=== PATIENT | female | born 1940 | race Caucasian/White ===

== ENCOUNTER 2022-08-23 15:09 | Inpatient (IN) ==
[2022-08-23] MEDS ORDERED: ONDANSETRON 4 MG/2 ML VIAL IV STA (15:45)
[2022-08-23] MEDS: HYDROmorphone 1 MG/1 ML SYRINGE IV PRN (16:04)
[2022-08-23 16:14] LABS: Basophils % 0.4 % (0.0-0.8); Eosinophils # 0.1 10*3/uL (0.0-0.87); Eosinophils % 0.6 % (0.00-10.9); Hematocrit 39.5 VOL% (35.7-47.0); Hemoglobin 13.6 GM/DL (12.0-16.0); Immature Granulocytes % 0.8 %; Immature Granulocytes Absolute 0.09 #; Lymphocytes # 0.7 10*3/uL (1.4-4.0); Lymphocytes % 6.4 % (21.3-54.2); Mean Corpuscular HGB Conc 34.4 GM/DL (32-36); Mean Corpuscular Volume 87.8 FL (87-102); Mean Platelet Volume 10.1 FL (9.6-12.0); Monocytes # 0.5 10*3/uL (0.11-0.8); Monocytes % 4.9 % (1.7-12.7); Neutrophils % 86.9 % (38.7-73.9); Platelet Count 242 T/CUMM (130-400); Red Cell Distribution Width 11.9 % (9.3-17.3); White Blood Count 11.13 T/CUMM (4-12)
[2022-08-23 16:59] LABS: Albumin 4.3 G/DL (3.4-5.0); Bilirubin,Total 0.6 MG/DL (0.20-1.00); Calcium 8.9 MG/DL (8.5-10.1); Osmolality,Calculated 282.4 MOS/KG (273-304); Potassium 3.7 MMOL/L (3.5-5.1); Total Protein 7.3 G/DL (6.4-8.2)
[2022-08-23] MEDS ORDERED: MORPHINE 2 MG/1 ML SYRINGE IV PRN ×2 (17:19)
[2022-08-23] MEDS ORDERED: ONDANSETRON 4 MG/2 ML VIAL IV PRN (19:42)
[2022-08-23] MEDS ORDERED: hydrALAZINE 20 MG/1 ML VIAL IV PRN (19:42)
[2022-08-23] MEDS: LACTATED RINGERS 1,000 ML IV SCH (22:34)
[2022-08-24 05:06] LABS: Basophils % 0.5 % (0.0-0.8); Eosinophils % 0.5 % (0.00-10.9); Hematocrit 39.5 VOL% (35.7-47.0); Hemoglobin 13.4 GM/DL (12.0-16.0); Immature Granulocytes % 0.3 %; Immature Granulocytes Absolute 0.03 #; Lymphocytes # 0.5 10*3/uL (1.4-4.0); Lymphocytes % 6.3 % (21.3-54.2); Mean Corpuscular HGB Conc 33.9 GM/DL (32-36); Mean Corpuscular Volume 88.8 FL (87-102); Mean Platelet Volume 10.6 FL (9.6-12.0); Monocytes # 0.7 10*3/uL (0.11-0.8); Monocytes % 8.4 % (1.7-12.7); Platelet Count 216 T/CUMM (130-400); Red Blood Count 4.45 MC/CUMM (3.8-5.5); White Blood Count 8.61 T/CUMM (4-12)
[2022-08-24 05:27] LABS: Calcium 9.2 MG/DL (8.5-10.1); Osmolality,Calculated 281.4 MOS/KG (273-304); Potassium 3.6 MMOL/L (3.5-5.1)
[2022-08-24] MEDS ORDERED: VANCOMYCIN INJ 750 MG in SODIUM CHLORIDE 0.9% 250 ML IV ONE (06:00)
[2022-08-24] MEDS: PANTOPRAZOLE 40 MG TABLET PO SCH (10:16)
[2022-08-24] MEDS ORDERED: ONDANSETRON 4 MG/2 ML VIAL ONE (10:58)
[2022-08-24] MEDS ORDERED: TRANEXAMIC ACID 1,000 MG/10 ML VIAL ONE (10:58)
[2022-08-24] MEDS ORDERED: MIDAZOLAM 2 MG/2 ML VIAL ONE (10:59)
[2022-08-24] MEDS ORDERED: LIDOCAINE 1% 5 ML VIAL ONE (12:00)
[2022-08-24] MEDS ORDERED: DEXAMETHASONE 4 MG/1 ML VIAL ONE (12:00)
[2022-08-24] MEDS ORDERED: ROPIVACAINE 0.5% 30 ML VIAL ONE (12:00)
[2022-08-24] MEDS ORDERED: KETAMINE 500 MG/10 ML VIAL ONE (12:59)
[2022-08-24] MEDS ORDERED: LACTATED RINGERS 1,000 ML IV SCH (13:00)
[2022-08-24] MEDS ORDERED: buprenorphine HCL 0.3 MG/ML VIAL ONE (13:03)
[2022-08-24] MEDS ORDERED: MAGNESIUM HYDROXIDE SUSP 30 ML UDCUP PO PRN (13:05)
[2022-08-24] MEDS ORDERED: PHENYLEPHRINE 1 MG/10 ML SYRINGE IV ONE (14:09)
[2022-08-24] MEDS: LACTATED RINGERS 1,000 ML IV SCH ×2 (16:52)
[2022-08-24] MEDS: DOCUSATE SODIUM 100 MG CAPSULE PO SCH (21:10)
[2022-08-25] MEDS ORDERED: ceFAZolin 2,000 MG/50 ML DUPLEX IV ONE (04:10)
[2022-08-25] MEDS: HYDROmorphone 1 MG/1 ML SYRINGE IV PRN (04:20)
[2022-08-25] MEDS: LACTATED RINGERS 1,000 ML IV SCH (04:22)
[2022-08-25 05:30] LABS: Basophils % 0.4 % (0.0-0.8); Eosinophils % 0.2 % (0.00-10.9); Hematocrit 34.8 VOL% (35.7-47.0); Immature Granulocytes % 0.6 %; Immature Granulocytes Absolute 0.06 #; Lymphocytes # 0.6 10*3/uL (1.4-4.0); Mean Corpuscular HGB Conc 34.5 GM/DL (32-36); Mean Corpuscular Volume 88.1 FL (87-102); Mean Platelet Volume 10.2 FL (9.6-12.0); Monocytes # 0.9 10*3/uL (0.11-0.8); Monocytes % 8.3 % (1.7-12.7); Neutrophils % 84.5 % (38.7-73.9); Platelet Count 197 T/CUMM (130-400); Red Blood Count 3.95 MC/CUMM (3.8-5.5); White Blood Count 10.57 T/CUMM (4-12)
[2022-08-25 06:05] LABS: Calcium 8.4 MG/DL (8.5-10.1); Osmolality,Calculated 274.8 MOS/KG (273-304); Potassium 3.7 MMOL/L (3.5-5.1)
[2022-08-25] MEDS ORDERED: ACETAMINOPHEN 325 MG TABLET PO PRN (06:40)
[2022-08-25] MEDS: FONDAPARINUX 2.5 MG/0.5 ML SYRINGE SUBCUT SCH (09:07)
[2022-08-25] MEDS: DOCUSATE SODIUM 100 MG CAPSULE PO SCH ×2 (09:07→21:35)
[2022-08-25] MEDS: PANTOPRAZOLE 40 MG TABLET PO SCH (09:07)
[2022-08-25] MEDS: SERTRALINE 25 MG TABLET PO SCH (11:32)
[2022-08-25] MEDS ORDERED: ZIPRASIDONE 20 MG/1 ML VIAL IM ONE (15:46)
[2022-08-25] MEDS ORDERED: TUBERCULIN SKIN TEST 0.1 ML SYRINGE INTRADERM ONE (16:00)
[2022-08-26] MEDS: HYDROmorphone 1 MG/1 ML SYRINGE IV PRN (00:51)
[2022-08-26 05:31] LABS: Basophils # 0.1 10*3/uL (0.0-0.2); Basophils % 0.5 % (0.0-0.8); Eosinophils # 0.1 10*3/uL (0.0-0.87); Eosinophils % 0.6 % (0.00-10.9); Hematocrit 33.9 VOL% (35.7-47.0); Hemoglobin 11.7 GM/DL (12.0-16.0); Immature Granulocytes % 0.5 %; Immature Granulocytes Absolute 0.05 #; Lymphocytes # 0.7 10*3/uL (1.4-4.0); Lymphocytes % 6.7 % (21.3-54.2); Mean Corpuscular HGB Conc 34.5 GM/DL (32-36); Mean Corpuscular Volume 87.1 FL (87-102); Monocytes # 1.1 10*3/uL (0.11-0.8); Monocytes % 10.9 % (1.7-12.7); Neutrophils % 80.8 % (38.7-73.9); Platelet Count 217 T/CUMM (130-400); Red Blood Count 3.89 MC/CUMM (3.8-5.5); Red Cell Distribution Width 12.1 % (9.3-17.3); White Blood Count 10.21 T/CUMM (4-12)
[2022-08-26 05:54] LABS: Calcium 8.7 MG/DL (8.5-10.1); Osmolality,Calculated 275.7 MOS/KG (273-304); Potassium 2.9 MMOL/L (3.5-5.1)
[2022-08-26] MEDS: DOCUSATE SODIUM 100 MG CAPSULE PO SCH ×2 (09:14→21:26)
[2022-08-26] MEDS: PANTOPRAZOLE 40 MG TABLET PO SCH (09:14)
[2022-08-26] MEDS: SERTRALINE 25 MG TABLET PO SCH (09:14)
[2022-08-26] MEDS: FONDAPARINUX 2.5 MG/0.5 ML SYRINGE SUBCUT SCH (09:15)
[2022-08-26] MEDS ORDERED: ZIPRASIDONE 20 MG/1 ML VIAL IM ONE (09:24)
[2022-08-26] MEDS: POTASSIUM CHLORIDE RIDER 10 MEQ/100 ML PREMIX IV PRN ×5 (13:15→17:50)
[2022-08-26] MEDS: OLANZapine 5 MG TABLET PO SCH ×2 (21:26→21:34)
[2022-08-27 04:47] LABS: Basophils # 0.1 10*3/uL (0.0-0.2); Basophils % 0.6 % (0.0-0.8); Eosinophils # 0.1 10*3/uL (0.0-0.87); Eosinophils % 1.3 % (0.00-10.9); Hematocrit 33.8 VOL% (35.7-47.0); Hemoglobin 11.6 GM/DL (12.0-16.0); Immature Granulocytes % 0.5 %; Immature Granulocytes Absolute 0.05 #; Lymphocytes # 0.8 10*3/uL (1.4-4.0); Lymphocytes % 7.2 % (21.3-54.2); Mean Corpuscular HGB Conc 34.3 GM/DL (32-36); Mean Corpuscular Volume 87.1 FL (87-102); Mean Platelet Volume 10.6 FL (9.6-12.0); Monocytes # 1.2 10*3/uL (0.11-0.8); Monocytes % 11.1 % (1.7-12.7); Neutrophils % 79.3 % (38.7-73.9); Platelet Count 203 T/CUMM (130-400); Red Blood Count 3.88 MC/CUMM (3.8-5.5); White Blood Count 10.48 T/CUMM (4-12)
[2022-08-27 05:06] LABS: Calcium 8.3 MG/DL (8.5-10.1)
[2022-08-27] MEDS: POTASSIUM CHLORIDE RIDER 10 MEQ/100 ML PREMIX IV PRN (10:28)
[2022-08-27] MEDS: SERTRALINE 25 MG TABLET PO SCH (10:30)
[2022-08-27] MEDS: FONDAPARINUX 2.5 MG/0.5 ML SYRINGE SUBCUT SCH ×2 (10:30→11:01)
[2022-08-27] MEDS: PANTOPRAZOLE 40 MG TABLET PO SCH (10:30)
[2022-08-27] MEDS: DOCUSATE SODIUM 100 MG CAPSULE PO SCH (11:01)
[2022-08-27 12:08] VITALS: BP 145/88
[2022-08-27] MEDS: POTASSIUM CHLORIDE 20 MEQ TABLET PO PRN ×2 (14:40→14:41)
== END 2022-08-27 14:50 | disposition swing bed (61) | DRG 522 ==
LOC: N.ED 15:09 → N.EDINP 19:42 → N.3E 20:50
PROVIDERS: ADMIT Emergency Medicine; ATTEND Emergency Medicine